=== PATIENT | male | born 1965 | race Two or more races ===

== ENCOUNTER 2021-10-15 19:17 | Inpatient (IN) | payer MEDICARE, OTHER ==
[~2021-10-15] VITALS: Ht 162.6 cm; Wt 77.6 kg
--- NOTE | 2021-10-15 11:45 | NUR ---
SS consult requested for ETOH Abuse. SW will follow up at a later time.
--- NOTE | 2021-10-15 19:37 | NUR ---
PT REPORTED HAVING SEIXURE AT THIS TIME. MADE AWARE
[2021-10-15] MEDS ORDERED: LORAZEPAM INJ 2 MG/ML VIAL ONE (19:38)
--- NOTE | 2021-10-15 19:49 | NUR ---
COVID ANTIGEN SWAB COLLECTED AND SENT TO LAB
--- NOTE | 2021-10-15 19:50 | NUR ---
RFA #20G S/L BLOOD COLLECTED AND SENT TO LAB
[2021-10-15] MEDS ORDERED: IV NS 0.9% 1,000 ML BAG IV ONE (20:00)
[2021-10-15] MEDS ORDERED: LORAZEPAM INJ 2 MG/ML VIAL IVP ONE (20:00)
[2021-10-15] MEDS ORDERED: LEVETIRACETAM (500MG) 500 MG in IV NS 0.9% 100 ML IV ONE (20:00)
--- NOTE | 2021-10-15 20:03 | NUR ---
PT TO CT VIA APRIL
[2021-10-15 20:16] LABS: CALCIUM, SERUM 8.2 mg/dL (8.5-10.1); CARBON DIOXIDE 14 mmol/L (21-32); CREATININE 1.1 mg/dL (0.6-1.3); GLUCOSE 122 mg/dL (74-106); POTASSIUM 3.1 mmol/L (3.5-5.1); UREA NITROGEN, BLOOD 9 mg/dL (7-18)
--- NOTE | 2021-10-15 20:16 | NUR ---
PT RETURNED TO ER BED [address]
[2021-10-15 20:17] LABS: SODIUM SERUM 114 mmol/L (136-145)
[2021-10-15 20:18] LABS: CHLORIDE 76 mmol/L (98-107)
[2021-10-15 20:21] LABS: BASOPHILS % (AUTO) 0.2 % (0.0-2.0); HEMATOCRIT 38 % (39-51); HEMOGLOBIN 12.2 g/dL (13.5-17.5); LYMPHOCYTES % (AUTO) 7.8 % (20.0-44.0); MEAN CORPUSCULAR HGB CONC 32 g/dl (31.0-36.0); MEAN CORPUSCULAR VOLUME 87 fL (80-96); MONOCYTES # (AUTO) 1.1 K/uL (0.1-1.30); MONOCYTES % (AUTO) 8.6 % (2.0-12.0); NEUTROPHILS # (AUTO) 10.6 K/uL (1.8-8.9); NEUTROPHILS % (AUTO) 83.4 % (43.0-81.0); PLATELET COUNT (AUTO) 191 K/uL (150-450); RED BLOOD CELL COUNT(AUTO) 4.34 MIL/uL (4.5-6.0); WHITE BLOOD COUNT (AUTO) 12.8 K/uL (4.3-11.0)
[2021-10-15 20:22] LABS: ALANINE AMINOTRANSFERASE 25 U/L (12-78); ALBUMIN 3.1 g/dL (3.4-5.0); ALCOHOL, BLOOD 38 mg/dL (0-0); ALKALINE PHOSPHATASE 152 U/L (46-116); ASPARTATE AMINOTRANSFERASE 45 U/L (15-37); BILIRUBIN,DIRECT 0.3 mg/dL (0.0-0.2); BILIRUBIN,TOTAL 1.1 mg/dL (0.2-1.0); TOTAL PROTEIN, SERUM 7.9 g/dL (6.4-8.2)
[2021-10-15] MEDS ORDERED: LIDOCAINE 2% JEL UROJET 10 ML MM ONE (20:24)
--- NOTE | 2021-10-15 20:34 | NUR ---
URINE COLLECTED AND SENT TO LAB.
--- NOTE | 2021-10-15 21:17 | NUR ---
[address] [place] [address] 2
[2021-10-15] MEDS ORDERED: MAGNESIUM HYDROXIDE 30 ML UDC PO PRN (22:30)
[2021-10-15] MEDS ORDERED: LORAZEPAM INJ 2 MG/ML VIAL IV PRN (22:30)
[2021-10-15] MEDS ORDERED: MAG HYDROX/AL HYDROX/SIMETH 30 ML UDC PO PRN (22:30)
[2021-10-15] MEDS ORDERED: Z GUARD REMEDY 4 OZ OINT TP PRN (22:30)
[2021-10-15] MEDS ORDERED: IV NS 0.9% 1,000 ML IV ONE (22:30)
[2021-10-15] MEDS: LEVETIRACETAM (500MG) 1,000 MG in IV NS 0.9% 100 ML IV SCH (22:30)
[2021-10-15] MEDS ORDERED: ACETAMINOPHEN 325 MG TABLET PO PRN (22:30)
[2021-10-15] MEDS ORDERED: ONDANSETRON HCL/PF 4 MG/2 ML VIAL IVP PRN (22:30)
[2021-10-15] MEDS ORDERED: IV Sodium Chloride 3% 500 ML 500 ML IV ONE ×2 (22:30→23:25)
--- NOTE | 2021-10-15 22:43 | NUR ---
REPORT GIVEN TO BRAULIO ELDRIDGE .
[2021-10-15 22:52] VITALS: BP 138/87
--- NOTE | 2021-10-15 22:58 | NUR ---
pt transfered to icu via gurney. acls protocol
--- NOTE | 2021-10-15 23:36 | NUR ---
ICU/RN: 15F QUIGLEY CATH PLACED VIA STERILE PROCEDURE. PT TOLERATED WELL.
[2021-10-15] MEDS ORDERED: LEVETIRACETAM (500MG) 500 MG/5 ML VIAL IV ONE (23:38)
--- NOTE | 2021-10-15 23:40 | NUR ---
RN NOTE RECEIVED PT FROM ER, ARRIVED IN A GURNEY, ASLEEP. PT WAS ON O2 THERAPY VIA NC 2L, TOLERATING WELL SATING AT 100%. PT RESPONDS TO QUESTIONS WHEN ASKED BUT KEEPS SAYING THE SAME THING OVER AND OVER. A/O X 0. IV ACCESS NOTED IN HIS RFA AND LAC, BOTH #20G. FLUSHES WELL. HOOKED UP ON TELE MONITOR SHOWING SR WITH HR OF 90s. PT WAS NOTED TO HAVE SOILED PANTS (PEED AND DEFECATED). KEPT PT CLEAN AND DRY. SKIN IS INTACT EXCEPT FOR REDNESS ON HIS PERINEUM AND BUTTOCKS. ALL SAFETY MEASURES IN PLACE: BED LOCKED, IN LOWEST POSITION. BED ALARM ON. CALL LIGHT WITHIN REACH. SR UP X 3. WILL CONTINUE TO MONITOR CLOSELY.
--- NOTE | 2021-10-15 23:51 | NUR ---
ICU/RN: KATELYNN WALLACE ACNP AT BEDSIDE TO EVALUATE PT. I EXPLAINED HOSPITAL POLICY TO INFUSE 3% SALINE A CENTRAL LINE IS REQUIRED. PER NURSING PIGMENT WEIGHER NURY NO PICC NURSE AVAILABLE UNTIL AM. PER KATELYNN WALLACE ACNP HOLD 3% SALINE FOR NOW GIVE 1L NS BOLUS THEN BEGIN NS @100ML/HR AND AWAIT NEXT BMP RESULT.
--- NOTE | 2021-10-15 23:53 | NUR ---
MED NOTE: PER KATELYNN WALLACE ACNP HOLD KEPPRA 1000MG IVPB. PT RECEIVED DOSE IN EMERGENCY ROOM. RESUME ORDER IN AM.
[2021-10-16] VITALS (31 sets, daily range): BP systolic 111–159; BP diastolic 69–98
[2021-10-16 00:15] LABS: CALCIUM, SERUM 8.1 mg/dL (8.5-10.1); CREATININE 0.9 mg/dL (0.6-1.3); POTASSIUM 3.7 mmol/L (3.5-5.1)
[2021-10-16] MEDS ORDERED: CEFTRIAXONE 1 G VIAL ONE (00:21)
[2021-10-16] MEDS: IV NS 0.9% 1,000 ML IV PRN ×2 (00:22→10:27)
[2021-10-16] MEDS: CEFTRIAXONE 1 G in IV D5W 50 ML IV SCH ×2 (00:22→22:14)
--- NOTE | 2021-10-16 00:36 | NUR ---
ICU/RN: CRITICAL NA 113 RESULTS RELAYED TO KATELYNN FREY. RECHECK IN 4 HOURS.
--- NOTE | 2021-10-16 01:17 | NUR ---
MED NOTE: ALL MED GIVEN UNDER VERIFIED DOSES.
[2021-10-16 04:15] LABS: BASOPHILS % (AUTO) 0.3 % (0.0-2.0); EOSINOPHILS % (AUTO) 0.5 % (0.0-6.0); HEMATOCRIT 37 % (39-51); HEMOGLOBIN 12.2 g/dL (13.5-17.5); LYMPHOCYTES % (AUTO) 12.5 % (20.0-44.0); MEAN CORPUSCULAR HGB CONC 33 g/dl (31.0-36.0); MEAN CORPUSCULAR VOLUME 89 fL (80-96); MONOCYTES # (AUTO) 1.4 K/uL (0.1-1.30); MONOCYTES % (AUTO) 17.1 % (2.0-12.0); NEUTROPHILS # (AUTO) 5.5 K/uL (1.8-8.9); NEUTROPHILS % (AUTO) 69.6 % (43.0-81.0); PLATELET COUNT (AUTO) 137 K/uL (150-450); RED BLOOD CELL COUNT(AUTO) 4.16 MIL/uL (4.5-6.0); WHITE BLOOD COUNT (AUTO) 7.9 K/uL (4.3-11.0)
[2021-10-16 04:40] LABS: ABG BASE EXCESS 2.5 mmol/L; ABG OXYGEN SATURATION 95.4 % (92.0-98.5); ABG PCO2 41.9 mmHg (35.0-45.0); ABG PH 7.429 (7.350-7.450); AaDO2 67.2 mmHg; COHb 1.1 % (0.5-1.5); MetHb 0.2 % (0.0-1.5); O2Hb 94.2 % (94.0-97.0); SITE, ABG Right Radial; VENT MODE, BG Nasal Cannula
[2021-10-16 05:01] LABS: CALCIUM, SERUM 7.7 mg/dL (8.5-10.1); CREATININE 0.8 mg/dL (0.6-1.3); MAGNESIUM 1.8 mg/dL (1.8-2.4); PHOSPHORUS 2.9 mg/dL (2.5-4.9)
--- NOTE | 2021-10-16 05:06 | NUR ---
ICU/RN: CRITICAL SODIUM 118 RELAYED TO KATELYNN WALLACE ACNP. CONTINUE FLUIDS UNTIL CENTRAL LINE CAN BE PLACED FOR 3% SALINE ADMINISTRATION.
[2021-10-16 05:31] LABS: BASOPHILS % (MANUAL) 0 % (0.0-2.0); EOSINOPHILS % (MANUAL) 0 % (0-4); LYMPHOCYTES % (MANUAL) 13 % (16-48); MONOCYTES % (MANUAL) 16 % (0-11.0); NEUTROPHILS % (MANUAL) 71 (42-76)
--- NOTE | 2021-10-16 06:15 | NUR ---
RN NOTE PT STILL ASLEEP. VS REMAINED STABLE THROUGHOUT THE NIGHT. ALL DUE MEDS GIVEN. SAFETY MEASURES STILL IN PLACE. WILL ENDORSE TO AM SHIFT NURSE FOR ELE.
--- NOTE | 2021-10-16 07:28 | NUR ---
WOUND CARE CONSULT: RECEIVED CONSULT FOR LOWER EXTREMITY WOUNDS, HOWEVER NO LOWER EXTREMITY WOUNDS NOTED. RESOLVING EDEMA NOTED TO LOWER EXTREMITIES. REDNESS/RASH NOTED TO PERINEAL AREA/INNER THIGHS AND SOME SCARRING TO BUTTOCKS, PRESENT ON ADMISSION. RECOMMENDATIONS MADE FOR SKIN PROTECTION. DISCUSSED WITH NURSING STAFF. MD IN AGREEMENT WITH PLAN OF CARE.
--- NOTE | 2021-10-16 07:30 | NUR ---
OPENING NOTE: REPORT RECEIVED FROM BRAULIO ELDRIDGE. LABS AND ORDERS REVIEWED DURING REPORT. PT AWAITING PICC PLACEMENT IN ORDER TO START 3% IV SOLUTION. PT APPEARS TO BE SLEEPING, EASILY AWOKEN, ALTHOUGH LETHARGIC. PT CHECKED ON HOURLY AND PRN BY NURSING STAFF.
--- NOTE | 2021-10-16 08:00 | NUR ---
PT IS UNABLE TO OPEN RIGHT EYE. RN ATTEMPTED TO CLEAN RIGHT EYE IN ATTEMPT TO OPEN IT AND ASSESS IT. PT REFUSED TO LET RN CLEAN EYE. ATTEMPTED TO ASK PATIENT ABOUT HIS RIGHT EYE THROUGH BUSINESS APPLICATIONS DEVELOPER. INDUSTRIAL EDUCATION INSTRUCTOR STATED PT IS CONFUSED AND NOT MAKING SENSE WHEN ASKED ABOUT HIS EYE. WILL ATTEMPT TO ASSESS EYE LATER.
[2021-10-16] MEDS ORDERED: PANTOPRAZOLE 40 MG VIAL IV SCH (09:00)
[2021-10-16 09:50] LABS: BILIRUBIN,URINE NEGATIVE (NEGATIVE); LEUKOCYTE ESTERASE ,URINE LARGE (NEGATIVE); NITRITE, URINE NEGATIVE (NEGATIVE); PROTEIN,URINE 100 mg/dl (NEGATIVE); UGLUCOSE NEGATIVE (NEGATIVE); UROBILINOGEN,URINE 0.2 EU/dL (0.2)
[2021-10-16 09:54] LABS: COLOR,URINE STRAW (YELLOW)
[2021-10-16 10:12] LABS: BACTERIA,URINE Few /HPF (None Seen); SQUAMOUS EPITHELIAL CELL,UR Few /HPF (None Seen)
--- NOTE | 2021-10-16 10:13 | NUR ---
SW called ICU to determine pt.'s level of consciousness. Nurse reported that pt. is somnolent at this time and not ready to be interviewed. SW will follow up at a later time. SS consult requested for alcohol use.
[2021-10-16] MEDS: CLOTRIMAZOLE 1% 15 GM TUBE TP SCH ×2 (10:14→16:36)
[2021-10-16] MEDS: LEVETIRACETAM (500MG) 1,000 MG in IV NS 0.9% 100 ML IV SCH ×2 (10:15→21:31)
--- NOTE | 2021-10-16 12:00 | NUR ---
RN ATTEMPTED AGAIN TO ASSESS PT'S RIGHT EYE. AGAIN PT DID NOT ALLOW RN TO CLEAN OR ATTEMPT TO OPEN RIGHT EYE. WILL CONTINUE TO MONITOR.
--- NOTE | 2021-10-16 16:10 | NUR ---
AFTER DENYING SPEAKING OR UNDERSTANDING ISRAELI SEVERAL TIMES THIS SHIFT. PT STARTED SPEAKING PERFECT ISRAELI AND UNDERSTANDING ISRAELI. PT CONTINUES TO BE CONFUSED AND TRYING TO REFUSE BLOOD DRAWS AND CARES. PT ALLOWED NURSING STAFF TO CLEAN HIS RIGHT EYE. PT WAS ABLE TO OPEN HIS RIGHT EYE WITHOUT DIFFICULTY AFTER CLEANING. PT CHECKED ON HOURLY AND PRN BY NURSING STAFF.
[2021-10-16 17:50] LABS: CREATININE 0.7 mg/dL (0.6-1.3)
[2021-10-16 17:58] LABS: POTASSIUM 2.8 mmol/L (3.5-5.1)
[2021-10-16] MEDS ORDERED: POTASSIUM CHLORIDE 20 MEQ TAB.PRT.SR PO ONE (18:30)
[2021-10-16] MEDS ORDERED: IV D5W 1,000 ML IV PRN (18:30)
--- NOTE | 2021-10-16 19:02 | NUR ---
END OF SHIFT NOTE: PT IS AWAKE SPEAKS JORDANIAN AND VIETNAMESE, CONTINUES TO BE CONFUSED. AT 1800 BMP RESULTS SODIUM 132, POTASSIUM 2.8. DR DIALLO WAS NOTIFIED. ORDERS FOR IVF TO BE CHANGED TO D5W AT 80ML/HR, 60MEQ PO POTASSIUM GIVEN TO PATIENT PER MD ORDERS. PT CHECKED ON HOURLY AND PRN BY NURSING STAFF.
[2021-10-16 22:35] LABS: CALCIUM, SERUM 7.7 mg/dL (8.5-10.1); CREATININE 0.8 mg/dL (0.6-1.3); POTASSIUM 3.3 mmol/L (3.5-5.1)
--- NOTE | 2021-10-16 22:45 | NUR ---
ICU/BOOT AND SADDLE REPAIR PERSON LAB CALLED WITH POSITIVE BLOOD CULTURE, GRAM NEG. RODS & GRAM POS. COCCI. CALLED THE SYSTEMS PROJECT MANAGER ABOUT THIS. NO NEW ORDERS WERE RECIEVED AT THIS TIME. ALSO LET SYSTEMS PROJECT MANAGER KATELYNN WALLACE. THAT SODIUM 130 AND POTASSIUM 3.2. NO NEW ORDERS.
[2021-10-17] VITALS (24 sets, daily range): BP systolic 109–161; BP diastolic 49–90
--- NOTE | 2021-10-17 07:30 | NUR ---
OPENING NOTE: REPORT RECEIVED FROM WILLEM ARGUELLES. LABS AND ORDERS REVIEWED DURING REPORT. PER REPORT IVF DC'D THIS AM. PT CHECKED ON HOURLY AND PRN BY NURSING STAFF.
[2021-10-17] MEDS: PANTOPRAZOLE 40 MG TABLET.DR PO SCH (08:32)
[2021-10-17] MEDS: CLOTRIMAZOLE 1% 15 GM TUBE TP SCH ×2 (08:32→20:22)
[2021-10-17] MEDS ORDERED: IV NS 0.9% 250 ML IV PRN (09:30)
[2021-10-17 09:51] LABS: CREATININE 1.1 mg/dL (0.6-1.3); POTASSIUM 3.8 mmol/L (3.5-5.1)
[2021-10-17] MEDS: LEVETIRACETAM (500MG) 1,000 MG in IV NS 0.9% 100 ML IV SCH ×2 (10:24→22:33)
--- NOTE | 2021-10-17 14:36 | NUR ---
LAB CALLED STATING THAT THE BLOOD CULTURE RESULTS IN THE SYSTEM FOR THIS PATIENT ARE NOT ACTUALLY FOR THIS PATIENT. POPCORN MACHINE OPERATOR INSTRUCTED THEM TO REMOVE RESULTS UNDER THIS PATIENT OR BILL THEM NOT FOR THE CORRECT PATIENT. OF THIS NOTE NOTHING HAS BEEN DONE TO CORRECT THE RESULT. WILL INFORM MD'S BLOOD CULTURE RESULT IS NOT FOR THIS PATIENT. INCORRECT RESULT, PLEASE DISREGARD ON MICROBIOLOGY: ONE BOTTLE OF SET GRAM NEGATIVE RODS SEEN ON GRAM STAIN AND GRAM POSITIVE COCCI SEEN ON GRAM STAIN SLIDE READ BY [facility]
--- NOTE | 2021-10-17 18:00 | NUR ---
PT TRANSFERRED TO ROOM 114-2 USING ACLS PROTOCOL WITH ALL BELONGINGS AND MEDICATIONS. BEDSIDE REPORT GIVEN TO MICHEL ELDRIDGE. PT SETTLED IN NEW ROOM, TELEMETRY APPLIED BY MICHEL ELDRIDGE.
--- NOTE | 2021-10-17 19:35 | NUR ---
RN NOTE pt received in bed a/o x2-3 with episodes of confusion. pt able to make needs known. pt in no respiratory distress on room air tolerating well. pt reporting no pain at this time.pt noted with iv access on the RFA # 20g, LAC # 20g, and LFA 20g and JOHNNY PICC all saline locked and flushed. pt noted with marie catheter draining taylor colored urine by gravity. pt on tele monitor reading SR 60s. all nursing needs met at this time hob elevated for aspiration precautions. bed alarm on. bilateral side rails up for safety x2. bed in low position. maintained seizure precautions. will continue to monitor.
--- NOTE | 2021-10-17 19:43 | NUR ---
RN NOTE RECEIVED FROM ICU, PT AWAKE ALERT AND RESPONSIVE. IN ROOM AIR. NOT IN DISTRESS. V/S STABLE. WILL CONT TO MONITOR.
[2021-10-17] MEDS: CEFTRIAXONE 1 G in IV D5W 50 ML IV SCH (21:30)
[2021-10-18 00:38] VITALS: BP 118/79
[2021-10-18 04:00] VITALS: BP 122/73
--- NOTE | 2021-10-18 06:50 | NUR ---
RN NOTE pt remains in bed a/o x2-3 with episodes of confusion. pt able to make needs known. pt in no respiratory distress on room air tolerating well. pt reporting no pain at this time.pt noted with iv access on the RFA # 20g, LAC # 20g, and LFA 20g and JOHNNY PICC all saline locked and flushed. pt noted with marie catheter draining taylor colored urine by gravity total output for the shift 900 ml. pt on tele monitor reading SR 65s. all nursing needs met at this time hob elevated for aspiration precautions. bed alarm on. bilateral side rails up for safety x2. bed in low position. maintained seizure precautions. all due meds given and tolerated well. pt repositioned q2hrs and prn for comfort. kept clean and dry at all times. pt noted with one episode of loose stool will endorse to day shift to monitor. will continue to monitor.
[2021-10-18 08:00] VITALS: BP 115/67
--- NOTE | 2021-10-18 08:04 | NUR ---
LANDSCAPE TECHNICIAN NOTE PATIENT IN BED , ALL NEEDS ATTENDED, ALERT ORIENTED, ON TELE MONITOR SR HR 87, ABLE TO EAT BREAKFAST SELF, RT FA LAC JOHNNY INTACT AND FLUSHED WELL, WITH QUIGLEY CATH TO GRAVITY WITH YELLOW COLOR URINE , BED IN LOWEST AND LOCKED POSITION , CALL LIGHT WITHIN REACH , SAFETY MEASURE IN PLACED , WILL MONITOR
[2021-10-18] MEDS: PANTOPRAZOLE 40 MG TABLET.DR PO SCH (08:18)
[2021-10-18] MEDS: CLOTRIMAZOLE 1% 15 GM TUBE TP SCH ×2 (09:35→21:22)
[2021-10-18] MEDS: LEVETIRACETAM (250 MG) 250 MG TABLET PO SCH ×2 (09:35→21:19)
[2021-10-18 11:00] LABS: CALCIUM, SERUM 7.8 mg/dL (8.5-10.1); POTASSIUM 3.5 mmol/L (3.5-5.1)
--- NOTE | 2021-10-18 11:30 | NUR ---
telephone service representative note rounds made, not in distress
[2021-10-18 12:00] VITALS: BP 116/80
--- NOTE | 2021-10-18 14:50 | NUR ---
telegraph office telephone clerk note LEFT MESSAGE WITH DR ARMSTRONG REGARDING GRAM POSITIVE COCCI, WAITING FOR RETURN CALL. Addendum: 10/18/21 at 1519 by DOMINGA HOLLIS RN LEFT MESSAGE ON [employer].
[2021-10-18 16:00] VITALS: BP 121/74
--- NOTE | 2021-10-18 16:20 | NUR ---
SR. PRICING ANALYST NOTES NOTIFIED DR DIALLO THAT PATIENT HAS GRAM POSITIVE COCCI AND GRAM VARIABLE RODS AND ORDERED VANCOMYCIN PER PHARMACY DOSE. AWARE THAT ROCHEPHIN IV DAILY. ALSO NOTIFIED SODIUM 129, ORDERED D5NS AT 80CC/ HR. AND OK TO DC FROM TELE TO MED SURG.
[2021-10-18] MEDS: IV D5/ 0.9% NACL 1,000 ML IV PRN (16:37)
[2021-10-18] MEDS: VANCOMYCIN 1.25 GM in IV D5W 250 ML IV SCH (17:09)
--- NOTE | 2021-10-18 18:17 | NUR ---
BIOMEDICAL ENGINEER NOTE UNABLE TO SCAN TYLENOL ,CALLED PHARMACY SPOKE WITH MISTY , DID MANUALLY
--- NOTE | 2021-10-18 18:28 | NUR ---
SHOVEL OPERATOR NOTE PATIENT IN BED ,ALERT WITH CONFUSION , TELE REMOVED ORDERED, ON IVF ORDERED RT FA, LAC JOHNNY PICC LINE IN PLACE , BED IN LOWEST AND LOCKED POSITION, WITH QUIGLEY CATH TO GRAVITY, CALL LIGHT WITHIN REACH , SAFETY MEASURE PROVIDED, NO SOB NOTED AT THIS TIME , ON RA , WILL CONT TO MONITOR
[2021-10-18] MEDS ORDERED: ACETAMINOPHEN 325 MG TABLET PO PRN (18:30)
[2021-10-18 20:00] VITALS: BP 124/72
[2021-10-18] MEDS: CEFTRIAXONE 1 G in IV D5W 50 ML IV SCH (21:20)
--- NOTE | 2021-10-18 23:00 | NUR ---
MS RN OPENING NOTE PT RECEIVED IN BED, AWAKE, A&O X3, NOTED TO HAVE SOME CONFUSION, BUT OTHERWISE CALM AND COOPERATIVE. PT ON RA WITH CURRENT O2SAT OF 97%; NO S/S OF RESP DISTRESS, NO SOB OR COUGH, NON-LABORED AND EQUAL BREATHING. VSS, WILL CONTINUE TO MONITOR NEEDED. QUIGLEY INTACT AND PATENT, NO SIGNS OF LEAKING DRAINING CLEAR AND YELLOW URINE. IV ACCESS NOTED TO BE ON RFA 20G, LAC 20G, AND JOHNNY PICC LINE; ALL ACCESS INTACT AND PATENT, FLUSHES EASILY WITH NO RESISTANCE; HAS NS D5NS RUNNING AT 80 ML/HR. BED IN LOWEST POSITION, CALL LIGHT WITHIN REACH, SIDE RAILS UP X3. WILL CONTINUE TO MONITOR THROUGHOUT THE NIGHT.
[2021-10-19 04:00] VITALS: BP 122/76
[2021-10-19] MEDS: VANCOMYCIN 1.25 GM in IV D5W 250 ML IV SCH ×2 (04:17→17:10)
--- NOTE | 2021-10-19 06:34 | NUR ---
RN NOTE UNABLE TO DRAW BLOOD FROM PICC LINE. PT REFUSED FOR CHIEF HUMAN RESOURCES OFFICER TO DRAW BLOOD.
--- NOTE | 2021-10-19 06:51 | NUR ---
MS RN CLOSING NOTE PT REMAINS IN BED, AWAKE, A&O X2-3 WITH PERIODS OF CONFUSION, CALM AND COOPERATIVE, SLEPT INTERMITTENTLY THROUGHOUT THE NIGHT. PT REMAINS ON RA WITH O2SAT RANGING FROM 97%-99%; NO S/S OF RESP DISTRESS, NO SOB OR COUGH, NON-LABORED AND EQUAL BREATHING. VSS, NO SIGNIFICANT CHANGES THROUGHOUT THE NIGHT. QUIGLEY INTACT AND PATENT, NO SIGNS OF LEAKING DRAINING CLEAR AND YELLOW URINE. IV ACCESS NOTED TO BE ON RFA 20G, LAC 20G, AND JOHNNY PICC LINE; ALL ACCESS INTACT AND PATENT, FLUSHES EASILY WITH NO RESISTANCE; HAS NS D5NS RUNNING AT 80 ML/HR. ALL DUE MEDS ADMINISTERED DURING THE NIGHT. BED IN LOWEST POSITION, CALL LIGHT WITHIN REACH, SIDE RAILS UP X3. WILL ENDORSE TO DAYSHIFT NURSE TO CONTINUE CARE.
--- NOTE | 2021-10-19 07:30 | NUR ---
OPENING NOTE PT RECEIVED IN BED, AWAKE, A&O X3, CALM AND COOPERATIVE. PT ON RA WITH CURRENT O2SAT OF 100%; NO S/S OF RESP DISTRESS, NO SOB OR COUGH, NON-LABORED AND EQUAL BREATHING. VSS, WILL CONTINUE TO MONITOR NEEDED. QUIGLEY INTACT AND PATENT, NO SIGNS OF LEAKING DRAINING CLEAR AND YELLOW URINE. IV ACCESS NOTED TO BE ON JOHNNY PICC LINE , RFA 20G, LAC 20G, LAC 20G, ALL ACCESS INTACT AND PATENT, FLUSHES EASILY WITH NO RESISTANCE; HAS NS D5NS RUNNING AT 80 ML/HR. BED IN LOWEST POSITION, CALL LIGHT WITHIN REACH, SIDE RAILS UP X3. WILL CONTINUE TO MONITOR THROUGHOUT THE DAY
[2021-10-19] MEDS: PANTOPRAZOLE 40 MG TABLET.DR PO SCH (07:48)
[2021-10-19 08:00] VITALS: BP 146/85
[2021-10-19] MEDS: CLOTRIMAZOLE 1% 15 GM TUBE TP SCH ×2 (08:43→21:08)
[2021-10-19] MEDS: LEVETIRACETAM (250 MG) 250 MG TABLET PO SCH ×2 (08:43→21:08)
[2021-10-19] MEDS: IV D5/ 0.9% NACL 1,000 ML IV PRN (11:55)
--- NOTE | 2021-10-19 14:39 | NUR ---
RN NOTE PATIENT REFUSES ALL THE LAB WORK AND BLOOD CULTURE
[2021-10-19 16:00] VITALS: BP 104/80
--- NOTE | 2021-10-19 18:30 | NUR ---
CLOSING NOTE PT REMAINS IN BED, AWAKE, A&O X2-3 WITH PERIODS OF CONFUSION, CALM AND COOPERATIVE. PT REMAINS ON RA WITH O2SAT RANGING FROM 96%; NO S/S OF RESP DISTRESS, NO SOB OR COUGH, NON-LABORED AND EQUAL BREATHING. QUIGLEY INTACT AND PATENT, NO SIGNS OF LEAKING DRAINING CLEAR AND YELLOW URINE. IV ACCESS NOTED TO BE ON RFA 20G, LAC 20G, AND JOHNNY PICC LINE; ALL ACCESS INTACT AND PATENT, FLUSHES EASILY WITH NO RESISTANCE; HAS NS D5NS RUNNING AT 80 ML/HR. ALL DUE MEDS ADMINISTERED DURING THE SHIFT. BED IN LOWEST POSITION, CALL LIGHT WITHIN REACH, SIDE
[2021-10-19 20:00] VITALS: BP 130/65
[2021-10-19] MEDS: CEFTRIAXONE 1 G in IV D5W 50 ML IV SCH (21:33)
--- NOTE | 2021-10-19 22:57 | NUR ---
MS RN OPENING NOTE PT RECEIVED IN BED, AWAKE, A&O X3 WITH PERIODS OF CONFUSION, CALM AND COOPERATIVE OVERALL. PT ON RA WITH CURRENT O2SAT OF 99%; NO S/S OF RESP DISTRESS, NO SOB OR COUGH, NON-LABORED AND EQUAL BREATHING. VSS, WILL CONTINUE TO MONITOR NEEDED. QUIGLEY INTACT AND PATENT, NO SIGNS OF LEAKING DRAINING CLEAR AND YELLOW URINE. MULTIPLE IV ACCESS NOTED ON RFA 20G AND LAC 20G, ALONG WITH JOHNNY PICC LINE; ALL ACCESSES INTACT AND PATENT, FLUSHES EASILY WITH NO RESISTANCE; D5NS RUNNING AT 80 ML/HR. BED IN LOWEST POSITION, CALL LIGHT WITHIN REACH, SIDE RAILS UP X3. WILL CONTINUE TO MONITOR THROUGHOUT THE NIGHT.
[2021-10-20] MEDS: IV D5/ 0.9% NACL 1,000 ML IV PRN (02:35)
[2021-10-20 04:00] VITALS: BP 124/80
[2021-10-20] MEDS: VANCOMYCIN 1.25 GM in IV D5W 250 ML IV SCH (04:12)
--- NOTE | 2021-10-20 06:06 | NUR ---
MS RN CLOSING NOTE PT REMAINS IN BED, ASLEEP BUT EASILY AROUSABLE, A&O X2-3; NOTED TO BE CONFUSED AT TIMES; OVERALL CALM AND COOPERATIVE. CONTINUES TO BE ON RA, O2SAT 99% THROUGHOUT THE WHOLE NIGHT; PT SHOWS NO S/S OF RESP DISTRESS, NO SOB OR COUGH, NON-LABORED AND EQUAL BREATHING. VSS DURING THE NIGHT WITH NO SIGNIFICANT CHANGES. SKIN CLEANSED AND ZGUARD AND CLOTRIMAZOLE HAVE BEEN APPLIED. JOHNNY PICC, RFA 20G, LAC 20G INTACT AND PATENT, FLUSHES EASILY WITH NO RESISTANCE; D5NS INFUSING AT 80 ML/HR. QUIGLEY REMAINS IN PLACE AND IS INTACT AND PATENT WITH NO SIGNS OF LEAKING, DRAINING CLEAR AND YELLOW URINE. ALL DUE MEDS ADMINISTERED DURING THE NIGHT. BED IN LOWEST POSITION, CALL LIGHT WITHIN REACH, SIDE RAILS UP X3. WILL ENDORSE TO DAYSHIFT NURSE TO CONTINUE CARE.
--- NOTE | 2021-10-20 07:30 | NUR ---
RN OPENING NOTE PATIENT IS IN BED, ASLEEP BUT EASILY AROUSABLE, ALERT ORIENTED X 3. DENIES PAIN, BREATHING UNLABORED AND NOT IN ANY FORM OF DISTRESS. WITH QUIGLEY CATHETER ATTACHED TO URINE BAG DRAINING TO A CLEAR YELLOW URINE. LEFT UPPER ARM PICC LINE, RIGHT FOREARM G20 IV INFUSING WITH D5NA AT 80 ML/HR, AND LEFT ANTECUBITAL G20 SALINE LOCK, ALL INTACT AND PATENT AND WITH NO SIGNS OF INFILTRATION AND PHLEBITIS. BED IS LOCKED IN LOWEST POSITION, 3 SIDE RAILS UP, CALL LIGHT WITHIN REACH. WILL CONTINUE TO MONITOR THROUGHOUT SHIFT.
--- NOTE | 2021-10-20 08:34 | NUR ---
RN NOTE LAB STAFF ATTEMPTED BLOOD DRAW THRU PICC LINE AND MIDLINE BUT UNSUCCESSFUL. BLOOD DRAW THROUGH PHLEBOTOMY ATTEMPTED BY LAB STAFF BUT PATIENT REFUSED SAYING "IT'S TOO MUCH. I DON'T WANT POKING WITH NEEDLES ANYMORE." EXPLAINED THE NEED FOR BLOOD DRAW, PATIENT UNDERSTANDS THE NEED BUT STILL REFUSED IT. DR. PARK MADE AWARE.
[2021-10-20] MEDS: LEVETIRACETAM (250 MG) 250 MG TABLET PO SCH (09:25)
[2021-10-20] MEDS: PANTOPRAZOLE 40 MG TABLET.DR PO SCH (09:25)
[2021-10-20] MEDS: CLOTRIMAZOLE 1% 15 GM TUBE TP SCH (09:26)
[2021-10-20] MEDS ORDERED: CEPH500C2 PO (11:29)
[2021-10-20] MEDS ORDERED: ACET325T53 PO (11:29)
[2021-10-20] MEDS ORDERED: THIA100T88 PO (11:29)
[2021-10-20] MEDS ORDERED: LEVE250T2 PO (11:29)
[2021-10-20] MEDS ORDERED: MULT-225 PO (11:29)
[2021-10-20] MEDS ORDERED: CLOT15CR35 TP (11:29)
[2021-10-20 12:06] VITALS: BP 111/65
--- NOTE | 2021-10-20 14:42 | NUR ---
RN CLOSING NOTE PATIENT IS DISCHARGED TO [facility] VIA AMBULANCE CREW, IN STABLE CONDITION AND NOT IN ANY FORM OF DISTRESS. SKIN ISSUES PHOTOGRAPHED AND DOCUMENTED PER HOSPITAL PROTOCOL. IV LINES DISCONTINUED AND INSERTION SITES COVERED WITH DRY DRESSING, IV CANNULA INTACT. ALL PAPERWORK SIGNED. REPORT GIVEN TO JOMAR ELDRIDGE OF [facility]. DISCHARGE V/S: T: 98, HR 78, RR 16, O2 SAT 97%, BP 111/65. Addendum: 10/20/21 at 1449 by ROMEL MELCHOR RN PICC LINE DISCONTINUED ORDERED.
== END 2021-10-20 15:36 | DRG 896 ==
LOC: ER 19:19 → ICU 22:21 → TELE1 10-17 17:46 → MEDSG1 10-18 16:24
PROVIDERS: ADMIT Nurse Practitioner Acute Care; ATTEND Nurse Practitioner Acute Care
PROC: 02HV33Z Insertion of Infusion Device into Superior Vena Cava, Percutaneous Approach (ICD-10-PCS; principal; 2021-10-16)
PROC: B548ZZA Ultrasonography of Superior Vena Cava, Guidance (ICD-10-PCS; 2021-10-16)
DX: F10.139 Alcohol abuse with withdrawal, unspecified (principal); G92.9 Unspecified toxic encephalopathy; E87.1 Hypo-osmolality and hyponatremia; G40.509 Epileptic seizures related to external causes, not intractable, without status epilepticus; E44.1 Mild protein-calorie malnutrition; E87.2 Acidosis; N39.0 Urinary tract infection, site not specified; J98.11 Atelectasis; Z20.822 Contact with and (suspected) exposure to COVID-19; Y90.1 Blood alcohol level of 20-39 mg/100 ml; Z59.00 Homelessness unspecified; E86.1 Hypovolemia; D72.829 Elevated white blood cell count, unspecified; R74.01 Elevation of levels of liver transaminase levels; E87.6 Hypokalemia; E83.51 Hypocalcemia; S81.809A Unspecified open wound, unspecified lower leg, initial encounter; X58.XXXA Exposure to other specified factors, initial encounter; Y92.9 Unspecified place or not applicable; E88.09 Other disorders of plasma-protein metabolism, not elsewhere classified; G93.89 Other specified disorders of brain
CPT/HCPCS: 36415; 36569; 36600; 70450-TC; 71045-TC; 80048-TC; 80076-TC; 81001; 82140-TC; 82803-TC; 83605-TC; 83735-TC; 84100-TC; 84300-TC; 85025-TC; 85730-TC; 87040-TC; 87081-TC; 87086-TC; 94799-TC; C9113; C9803; G0378; G0480; J0696; J1953; J2060; J3370; J3490; J7030; J7042; J7050; J7060; J7070

== ENCOUNTER 2021-11-05 19:35 | Emergency (ER) | payer MEDICARE, OTHER ==
[~2021-11-05] VITALS: Ht 165.1 cm; Wt 71.7 kg
[~2021-11-05 19:35] MED LIST: ACET325T53 PO; CEPH500C2 PO; CLOT15CR35 TP; LEVE250T2 PO; MULT-225 PO; THIA100T88 PO
--- NOTE | 2021-11-05 20:17 | NUR ---
[id number] FROM 09/07 C/O ETOH. PT PLACED ON MONITOR AND SAFETY MEASURES IN PLACE. SITTER AT BEDSIDE.
[2021-11-06] MEDS ORDERED: NALOXONE PREFILLED SYRINGE 2 MG/2 ML SYRINGE ONE (04:24)
[2021-11-06] MEDS ORDERED: ONDANSETRON HCL/PF 4 MG/2 ML VIAL ONE (04:26)
--- NOTE | 2021-11-06 05:19 | NUR ---
PT'S AMBULATION TESTED BUT IS STILL UNSTEADY ON GAIT. MADE AWARE
--- NOTE | 2021-11-06 09:00 | NUR ---
PT NOTED W/ STEADY GAIT UPON AMBULATION. PROVIDED W/ BREAKFAST TRAY.
--- NOTE | 2021-11-06 09:05 | NUR ---
Patient discharged to home in stable condition. Written and verbal after care instructions given. Patient refused to sign discharge form; form signed by me and witnessed by another CHENTE Daly.
[2021-11-06 09:06] VITALS: BP 128/80
--- NOTE | 2021-11-06 09:07 | NUR ---
Pt refused homeless waiver and resources.
== END 2021-11-06 09:07 | disposition home or self-care (01) ==
LOC: ER 19:39
DX: F10.129 Alcohol abuse with intoxication, unspecified (principal); Z59.00 Homelessness unspecified; Z79.899 Other long term (current) drug therapy; Y90.9 Presence of alcohol in blood, level not specified
CPT/HCPCS: J2310; J2405